=== PATIENT | female | born 1960 | race African-American/Black ===

== ENCOUNTER 2022-12-14 23:59 | Emergency (ER) | payer MEDICAID ==
[~2022-12-14] VITALS: Ht 165.1 cm; Wt 70.0 kg
[2022-12-15 00:52] LABS: BASOPHILS % 0.2 % (0.0-2.0); EOSINOPHILS % 0.7 % (0.0-5.0); HEMATOCRIT. 38.6 % (36.0-48.0); HEMOGLOBIN. 13.2 g/dL (12.0-16.0); LYMPHOCYTES % 36.2 % (20.0-50.0); MEAN CORPUSCULAR HEMOGLOBIN 32.8 pg (28.0-32.0); MEAN CORPUSCULAR VOLUME 96.3 fL (81.0-99.0); MEAN PLATELET VOLUME 7.2 fl (7.4-10.4); MONOCYTES % 6.4 % (2.0-8.0); NEUTROPHILS % 56.5 % (40.0-76.0); PLATELET 343 x1000/uL (130-400); RED BLOOD CELL COUNT 4.01 mill/uL (4.2-5.4); RED CELL DISTRIBUTION WIDTH 13.1 % (11.6-14.6)
[2022-12-15 00:57] LABS: CHLORIDE 105 mEq/L (98-107)
[2022-12-15 06:36] VITALS: BP 150/76
== END 2022-12-15 06:36 | disposition home or self-care (01) ==
LOC: ER 23:59
DX: R55 Syncope and collapse (principal); I10 Essential (primary) hypertension
CPT/HCPCS: 36415; 71045; 80053; 84484; 85025; 93005; 99285